=== PATIENT | female | born 1960 | race African-American/Black ===

== ENCOUNTER 2018-01-14 07:55 | Emergency (ER) | payer OTHER ==
[2018-01-14] MEDS ORDERED: Lidocaine 1% 20 ML MDV ONE (08:10)
== END 2018-01-14 08:34 | disposition home or self-care (01) ==
LOC: NAV ERS 07:55
DX: L02.411 Cutaneous abscess of right axilla (principal); I10 Essential (primary) hypertension; Z79.899 Other long term (current) drug therapy
CPT/HCPCS: 10060; 87070; 87205; J2001